=== PATIENT | female | born 1990 | race African-American/Black ===

== ENCOUNTER 2024-01-10 05:59 | Emergency (ER) | payer OTHER ==
[~2024-01-10] VITALS: Ht 172.7 cm; Wt 78.1 kg
[~2024-01-10 05:59] MED LIST: ACET-2708 MT
[2024-01-10 06:06] VITALS: O2SAT 99
[2024-01-10 08:00] VITALS: BP 110/75; PULSE 83; RESP 16; TEMP 98.1
== END 2024-01-10 11:41 | disposition home or self-care (01) ==
LOC: ER 05:59
DX: S60.442A External constriction of right middle finger, initial encounter (principal); W49.04XA Ring or other jewelry causing external constriction, initial encounter; Y93.89 Activity, other specified; Y92.89 Other specified places as the place of occurrence of the external cause; Y99.8 Other external cause status
CPT/HCPCS: 99284